=== PATIENT | male | born 1990 | race Hispanic/Latino ===

== ENCOUNTER → 2025-01-14 | Outpatient (CLI) | payer BC, SELFPAY ==
--- NOTE | 2025-01-14 17:10 | RAD_ITS ---
PROCEDURE: LUMBAR SPINE 2 OR 3 VIEWS 01/14/2025 REASON FOR EXAM: BACK INJURY Initial encounter. TECHNIQUE: LUMBAR SPINE 2 OR 3 VIEWS COMPARISON: None. FINDINGS: Vertebrae: Vertebral body heights are intact. Discs: This is a relatively mild degenerative loss of disc height at L4-5 Alignment: Normal AP alignment with normal lumbar lordosis Other: RAD/Lumbar Spine 2 or 3 Views IMPRESSION: No acute process detected. Reading Location: [facility]
== END | disposition home or self-care (01) ==
PROVIDERS: PCP Family Medicine; Referring Provider Family Medicine; Visit Provider Family Medicine
DX: M54.9 Dorsalgia, unspecified (principal)
CPT/HCPCS: 72100